=== PATIENT | male | born 1970 | race Caucasian/White ===

== ENCOUNTER 2025-08-27 17:23 | Outpatient (REF) | payer OTHER, SELFPAY ==
[2025-08-27 22:11] LABS: COMMENT (LAB VIEW ONLY) 190.86 mg/dL; Microalb ug/mg Crea 4.3 ug/mg Cr
== END 2025-08-27 17:24 | disposition home or self-care (01) ==
LOC: NCHCN 17:23
PROVIDERS: Nurse Practitioner Family; Visit Provider Physician Assistant Medical
DX: I10 Essential (primary) hypertension (principal)
CPT/HCPCS: 82043; 82570